=== PATIENT | female | born 1945 | race Caucasian/White ===

== ENCOUNTER 2018-08-23 07:46 | Day surgery (SDC) | payer MEDICARE, OTHER ==
[~2018-08-23] VITALS: Ht 165.1 cm; Wt 72.4 kg
[2018-08-23] MEDS ORDERED: PROPRANOLOL (08:43)
[2018-08-23] MEDS ORDERED: MECLIZINE (08:43)
[2018-08-23] MEDS ORDERED: HYDROCHLOROTHIAZIDE (08:43)
[2018-08-23] MEDS ORDERED: LEVOTHYROXINE (08:43)
[2018-08-23] MEDS ORDERED: LOSARTAN (08:43)
[2018-08-23 09:38] VITALS: BP 144/79; PULSE 69; RESP 16
--- NOTE | 2018-08-23 09:41 | PREAC ---
Date/Time of Note Date/Time of Note DATE: 08/23/18 TIME: 09:37 Anesthesia Eval and Record Evaluation Time Pre-Procedure Interview DATE: 08/23/18 TIME: 09:37 Age 73 Sex female NPO: 8 hrs Preoperative diagnosis Abdominal Pain Planned procedure EGD Past Medical History Past Medical History: Includes Cardio: HTN, CAD, Arrythmia Endo: Hypothyroid Surgery & Anesthesia Issues No known issue Meds Anticoagulation: No Beta Fede within 24 hr: Yes Reported Medications [Levothyroxine] No Conflict Check 08/23/18 [Meclizine] No Conflict Check 08/23/18 [Propranolol] No Conflict Check 08/23/18 [Hydrochlorothiazide] No Conflict Check 08/23/18 [Losartan] No Conflict Check 08/23/18 Meds reviewed: Yes Allergies Coded Allergies: No Known Allergy (Unverified , 08/23/18) Allergies Reviewed: Yes Labs/Studies Labs Reviewed: Reviewed by anesthesiologist test: N/A Studies: ECG (1st degree AV Block, SB) Pre-procedure Exam Airway: Adequate mouth opening, Adequate thyromental dist Mallampati: Mallampati II Teeth: Normal Lung: Normal Heart: Normal ASA Physical Status ASA physical status: 3 Emergency: None Planned Anesthetic General/MAC: MAC Planned Pain Management Parenteral pain med Pre-operative Attestations Prior to commencing anesthesia and surgery, the patient was re-evaluated, there was verification of: *The patient's identity *The results of appropriate recent lab work and preoperative vital signs *The above evaluation not changing prior to induction *Anesthetic plan, risk benefits, alternative and complications discussed with patient/family; questions answered; patient/family understands, accepts and wishes to proceed. GARRY DANG MD Aug 23, 2018 09:41
[2018-08-23] MEDS ORDERED: PROPOFOL 20 ML ONE (11:33)
--- NOTE | 2018-08-23 11:34 | PAC ---
Date/Time of Note Date/Time of Note DATE: 08/23/18 TIME: 11:33 Post-Anesthesia Notes Post-Anesthesia Note Last documented vital signs Vital Signs Date Temp Pulse Resp B/P (MAP) Pulse Ox O2 O2 Flow FiO2 Time Delivery Rate 08/23/18 98.2 69 16 144/79 98 Room Air 11:38 (100) Activity: WNL Respiratory function: WNL Cardiovascular function: WNL Mental status: Baseline Pain reasonably controlled: Yes Hydration appropriate: Yes Nausea/Vomiting absent: Yes GARRY DANG MD Aug 23, 2018 11:34
[2018-08-23 11:59] VITALS: BP 147/87; PULSE 68; RESP 16
== END 2018-08-23 14:05 | disposition home or self-care (01) ==
LOC: GIL 07:46
PROVIDERS: ATTEND Internal Medicine Gastroenterology
DX: K21.0 Gastro-esophageal reflux disease with esophagitis (principal); K29.50 Unspecified chronic gastritis without bleeding; I10 Essential (primary) hypertension; I25.10 Atherosclerotic heart disease of native coronary artery without angina pectoris; E03.9 Hypothyroidism, unspecified
CPT/HCPCS: 88305; 88312